=== PATIENT | male | born 2000 ===

== ENCOUNTER 2021-11-10 11:53 | Emergency (ER) | payer SELFPAY ==
[2021-11-10] MEDS ORDERED: CEPHALEXIN500 M1 PO (14:11)
[2021-11-10] MEDS ORDERED: NAPROSYN500 MG PO (14:11)
== END 2021-11-10 14:37 | disposition home or self-care (01) ==
LOC: ER1 11:53
DX: S66.320A Laceration of extensor muscle, fascia and tendon of right index finger at wrist and hand level, initial encounter (principal); W22.8XXA Striking against or struck by other objects, initial encounter; Y92.89 Other specified places as the place of occurrence of the external cause; Y99.0 Civilian activity done for income or pay
CPT/HCPCS: 12002; 99282